=== PATIENT | female | born 1990 | race Two or more races ===

== ENCOUNTER 2018-07-05 11:00 | Emergency (ER) | payer MEDICAID, OTHER ==
[~2018-07-05] VITALS: Ht 154.9 cm; Wt 89.4 kg
[2018-07-05 11:14] VITALS: BP 110/72
== END 2018-07-05 13:06 | disposition home or self-care (01) ==
LOC: ER 11:00
DX: O26.892 Other specified pregnancy related conditions, second trimester (principal); J02.9 Acute pharyngitis, unspecified